=== PATIENT | female | born 1980 | race Caucasian/White ===

== ENCOUNTER 2021-01-26 17:10 | Emergency (ER) | payer BC ==
[~2021-01-26 17:10] MED LIST: ANTIINFLAMMATORY; Adipex-P37.5 MG PO; Amoxicillin500 MG PO; Augmentin 875-1 EACH PO; CLAR500 PO; DICL25ER PO; DOCU100 PO; FAMO40 PO; GABA300 PO; HYDACE10B PO; HYDACE5 PO; HYDR1TAB94 PO; HYSINGLA ER20 MG PO; IBUP600 PO; IBUP800 PO; Ibuprofen Ib200 MG PO; METF500C PO; MULVITMINE PO; NEXPLANON68 MG; NEXPLANON68 MG SQ; NUCYNTA50 MG PO; NUVO RING; Norco 10-325 T1 EACH PO; ONDA4 PO; ONDA4ODT MM; OXYC10TA19; OXYC10TA19 PO; OXYC5 PO; Oxycodone HCl5 M1 PO; Oxycontin20 MG; PANT40 PO; PROM25 PO; Pepcid40 MG PO; Percocet 10-321 EACH PO; Percocet 5-3251 EACH PO; Robaxin500 MG PO; SPRIX1 EACH; SUCR1 PO; SUCR1SU PO; Valium5 MG PO; Zanaflex4 M1 PO; Zanaflex4 MG; Zofran Odt4 MG SL; Zofran8 MG PO
== END 2021-01-26 17:28 | disposition home or self-care (01) ==
LOC: ER 17:10
DX: U07.1 COVID-19 (principal); F41.9 Anxiety disorder, unspecified; F17.210 Nicotine dependence, cigarettes, uncomplicated
CPT/HCPCS: 99282